=== PATIENT | female | born 1995 | race Caucasian/White ===

== ENCOUNTER → 2019-11-09 16:34 | Outpatient (CLI) | payer BC, SELFPAY ==
[2019-11-09 17:54] LABS: HCG,Quantitative 1800 mIU/ml (0-5.42)
[2019-11-11 09:15] LABS: Progesterone 18.8 ng/mL (.)
== END ==
PROVIDERS: Visit Provider Nurse Practitioner
DX: N91.1 Secondary amenorrhea (principal)
CPT/HCPCS: 36415; 84144; 84702

== ENCOUNTER → 2019-11-11 10:05 | Outpatient (CLI) | payer BC, SELFPAY ==
[2019-11-11 11:00] LABS: HCG,Quantitative 4106 mIU/ml (0-5.42)
== END ==
PROVIDERS: Visit Provider Nurse Practitioner
DX: N91.1 Secondary amenorrhea (principal)
CPT/HCPCS: 36415; 84702

== ENCOUNTER 2022-03-21 14:14 | Emergency (ER) | payer BC, SELFPAY ==
[2022-03-21 15:16] VITALS: BP 143/101; PULSE 79; RESP 16; TEMP 37; O2SAT 99; BMI 35.2
--- NOTE | 2022-03-21 15:52 | EXP.UTC ---
Discharge Plan Disposition Patient Disposition: Home, Self-Care Condition: Good Prescriptions Prescriptions: No Action gabapentin 100 mg capsule 100 mg PO HS methylprednisolone [Medrol (Darryl)] 4 mg tablets,dose pack See Rx Instructions PO PER PKG DIR Qty: 21 0RF Rx Instructions: PO PER PKG DIR Referrals Follow up/Referrals: Yue Mccord MD [Primary Care Provider] - See instructions Activity Restrictions/Add. Instructions Additional Instructions/Restrictions: You have been tested for COVID19. Please isolate yourself as if you are positive until test results received. Current CDC guidelines are quarantine X 5 days from onset of symptoms, with an additional 5 days of mask wearing at all times. If you have difficulty breathing, signs of dehydration, etc please seek treatment at ER. Clinical Impressions Clinical Impression: COVID-19 Stand Alone Forms Stand Alone Forms: Work/School Release Discharge ED Provider: Samantha Tyler [facility] HPI General Stated complaint: tested positive Mode of Arrival: Ambulatory Source of Information: Patient Limitations: No Limitations Time Seen by Provider: 03/21/22 15:45 Description of Symptoms (Recalled from Triage Doc. by RN): pt c/o for covid test for work. pt had at home positive test yesterday HEENT Symptoms (Recalled from RN notes): Yes Resp Symptoms (Recalled from RN notes): Yes Skin Symptoms (Recalled from RN notes): No MS Symptoms (Recalled from RN notes): No Functional Status (Recalled from RN notes): n/a History of Present Illness Provider Complaint: Patient has had sinus symptoms for 4-5 days. had fever, got tested at work and was positive for COVID19. She took a home test yesterday and it was positive. She is actually feeling much better today but work requires a PCR test. Onset (ago): day(s) Relieving factors: none Exacerbating factors: none Treatments prior to arrival: none Related Data Home Medications Medication Instructions Recorded Confirmed gabapentin 100 mg capsule 100 mg PO HS 10/07/20 10/07/20 Previous Rx's Medication Instructions Recorded methylprednisolone 4 mg tablets in See Rx Instructions PO PER PKG DIR 10/07/20 a dose pack (Medrol (Darryl)) #21 tabs Allergies Allergy/AdvReac Type Severity Reaction Status Date / Time No Known Allergies Allergy Verified 10/07/20 15:42 Worker's Comp Is this a Worker's Comp case?: No PFSH PFSH Social History Smoking Status: Never smoker alcohol intake: current substance use type: denies use current occupational status: employed household members: spouse and children housing: house ROS Obtained: Yes All systems reviewed & no additional complaints except as documented Constitutional Constitutional: Reports fatigue ENT Ears, Nose, Mouth, and Throat: Reports nasal congestion Respiratory Respiratory: Reports cough Endocrine Endocrine: Reports fatigue Physical Exam General General appearance: alert and in no apparent distress Head Head exam: atraumatic, normocephalic and normal inspection Eye Eye exam: Present normal appearance, PERRL and EOMI ENT ENT exam: Present normal exam, normal oropharynx, mucous membranes moist, TM's normal bilaterally and normal external ear exam Neck Neck exam: Present normal inspection, full ROM and trachea midline; Absent meningismus or lymphadenopathy Chest Chest inspection: Present normal inspection and symmetric chest wall rise; Absent tenderness Respiratory Respiratory exam: Present normal lung sounds bilaterally; Absent respiratory distress Cardiovascular Cardiovascular exam: Present regular rate and normal rhythm; Absent JVD Extremities Exam Extremities exam: Present normal inspection, full ROM and normal capillary refill; Absent calf tenderness Neurological Exam Neurological exam: Present alert and oriented X3 Psychiatric Psychiatric exam: Present normal affect and normal mood Skin Skin exam: Present warm, d
[2022-03-21 16:15] VITALS: BP 143/101; PULSE 79; RESP 16; TEMP 37
== END 2022-03-21 16:15 | disposition home or self-care (01) ==
PROVIDERS: Emergency Provider Physician Assistant; PCP Family Medicine
DX: U07.1 COVID-19 (principal)
CPT/HCPCS: 99212; C9803; G0463; U0003; U0005

== ENCOUNTER → 2022-12-22 16:56 | Outpatient (CLI) | payer BC, SELFPAY ==
[2022-12-24 08:21] LABS: Progesterone 0.1 ng/mL (.)
== END ==
PROVIDERS: Visit Provider Student in an Organized Health Care Education/Training Program
DX: N97.0 Female infertility associated with anovulation (principal)
CPT/HCPCS: 36415; 84144

== ENCOUNTER 2023-12-05 15:04 | Outpatient (CLI) | payer BC, SELFPAY ==
--- NOTE | 2023-12-05 15:10 | PC.NURSE ---
From [phone] Patient here for consult r/t unable to latch . Nia delivered at 37 6/7 on 11/07/2023 via repeat c/s. Failed . No complications with delivery or care. Patient reports she is pumping and feeding via bottle. Reports infant very fussy with feeding and therefore she has been using dr chinchilla bottle with pumped breast milk. Reports that she thinks she has a good milk supply I have 100 ounces of milk stored. No tongue, lip or cheek tie noted. has strong suck. This IBCLC assisted with latch, mom holding away from body arching back and crying. IBCLC went over proper holding of infant for feeding, introduced nipple shield (since was used to a bottle nipple for nearly a month). Infant latched well and nursed for 15-20 mins. INfant was around 1 ounce and was satisfied. Plan of care went over with patient and told patient that I would call her Wednesday. Nipple shield nipple shield instructions proper latch instructions all given to patient.
== END 2023-12-05 16:10 | disposition home or self-care (01) ==
LOC: OBOUT 15:07 → OB 15:10
PROVIDERS: Visit Provider Obstetrics & Gynecology
DX: Z39.1 Encounter for care and examination of lactating mother (principal)

== ENCOUNTER 2024-02-28 17:25 | Outpatient (CLI) | payer BC, SELFPAY ==
--- NOTE | 2024-02-28 18:00 | PC.NURSE ---
Nia is here for a consult- goal is to re-latch . Nia has been exclusively pumping and feeding through a bottle. Nia has an oversupply and is doing well with no pain. Reports that she started a few days ago latching infant. Reports infant has been coming on and off during feeds. LC observed feeding at this time. did appear fussy and tired at breast. Good latch noted during feeding. Infant consumed an appropriate amount of 2 ounces. Nai was given instructions on attempting to nurse before every bottle feeding. Making sure her and infant were relaxed and in a good position. Recommended gas drops before and frequent burping. LC will contact patient next Wednesday for a phone follow up.
== END 2024-02-28 18:10 | disposition home or self-care (01) ==
LOC: OBOUT 17:27 → OB 17:28
DX: Z39.1 Encounter for care and examination of lactating mother (principal)

== ENCOUNTER 2024-10-17 10:59 | Outpatient (CLI) | payer BC, SELFPAY ==
--- NOTE | 2024-10-17 11:03 | XR_ITS ---
FINAL REPORT CLINICAL HISTORY: Rt lateral foot pain for 1 week, nki COMPARISON: None FINDINGS: AP, oblique and lateral views of the right foot were obtained. There is no acute fracture or dislocation. The joint spaces are preserved. Soft tissues are unremarkable. IMPRESSION: No acute osseous abnormality of the right foot. Reviewed, Interpreted and Dictated by Teresa Liu MD Transcribed by Rubi Mcintyre Authenticated and [facility]
== END 2024-10-17 23:59 | disposition home or self-care (01) ==
LOC: RAD 11:00
PROVIDERS: PCP Nurse Practitioner Family; Visit Provider Nurse Practitioner Family
DX: M79.671 Pain in right foot (principal)
CPT/HCPCS: 73630

== ENCOUNTER 2025-03-31 11:46 | Outpatient (CLI) | payer BC, SELFPAY ==
--- OUTSIDE RECORDS SUMMARY | 2023-11-11 05:00 | XMS_ITS ---
Author Organization [facility] Address [address] [place] [address] Care Team Providers Care Supervisor Fur Dressing Name Role Phone Tania Laboy Unavailable [phone] Blanca Lara Unavailable [phone] REASON FOR VISIT NST Social History Sex Assigned At : Social History Observation Description Sex Assigned At Female Encounters Encounter Location Date Provider Diagnosis [facility] [address] [place] [address] 11/11/2023 Blanca Lara Plan Of Treatment Next Appt Details Follow Up: 2 - 3 Days, 2 - 3 Days, 2 - 3 Days, 2 - 3 Days, Reason: Progress Notes * Nia POMPA HDOB: [birth year] (30 yo F)Acc No.[id number]:11/11/2023 Progress Note Patient: Nia Silveira Provider: Pipe Lara CNM :1995 A ge:28 Y S ex:Female Date:11/11/2023 Address:[address], [place] Subjective: * Chief Complaints: * N ST Plan: * Follow Up: 2 - 3 Days, 2 - 3 Days, 2 - 3 Days, 2 - 3 Days * Electronic signature of Lis Lara CNM on 03/31/2025 at 11:52 AM EDT Sign off status: Pending Visit Status: C ALIX (Check Out) * Provider: Pipe Lara CNM Date: 0 11/11/2023 Generated for Alison Andersen/Alanna on: 0 03/31/2025 11:52 AM EDT
--- OUTSIDE RECORDS SUMMARY | 2023-11-14 13:00 | XMS_ITS ---
Author Organization [facility] Address [address] [place] [address] Care Team Providers Care Central Supply Clerk Name Role Phone Tania Laboy Unavailable [phone] Blanca Lara Unavailable [phone] REASON FOR VISIT IOL A2DM Social History Sex Assigned At : Social History Observation Description Sex Assigned At Female Encounters Encounter Location Date Provider Diagnosis [facility] [address] [place] [address] 11/14/2023 Blanca Lara Plan Of Treatment No Information Progress Notes * Nia POMPA HDOB: [birth year] (30 yo F)Acc No.[id number]:11/14/2023 Patient: Ankita jeffries Nia H Provider: Pipe Lara CNM :1995 A ge:28 Y S ex:Female Date:11/14/2023 Address:[facility] [address], [place] Subjective: * Chief Complaints: * I OL A2DM * Electronic signature of Lis Lara CNM on 03/31/2025 at 11:52 AM EDT Sign off status: Pending Visit Status: C ONFSMS (SMS) * Provider: Pipe Lara CNM Date: 0 11/14/2023 Generated for Printi ng/Fachiqui/eTransmitting on: 0 03/31/2025 11:52 AM EDT
--- OUTSIDE RECORDS SUMMARY | 2024-10-28 17:30 | XMS_ITS ---
Author Organization [facility] Address [address] [facility] [address] [place], [place] [address] Care Team Providers Care Painter Maintenance Name Role Phone Nimco Kimbrough Primary Care Provider NIMCO Kimbrough APRN Unavailable Unavailable Migration, Provider Unavailable Unavailable REASON FOR VISIT [facility] Conversion Encounter Medications Medication SIG (Take, Route, Frequency, Duration) Notes Start Date End Date Status Diclofenac Sodium 75 MG 1 tab(s) orally 2 times a day; Duration: 30 days 10/17/2024 Active Triamcinolone Acetonide 0.1 % 1 zohreh applied topically 2 times a day; Duration: 7 days 10/17/2024 Active Encounters Encounter Location Date Provider Diagnosis [facility] [address] [facility] [address] [place] [address] 10/28/2024 Provider Migration Plantar fasciitis of right foot M72.2 and Dermatitis L30.9 Assessments Encounter Date Diagnosis (ICD Code) Assessment Notes Treatment Notes Treatment Clinical Notes Section Notes 10/28/2024 Plantar fasciitis of right foot (ICD-10 - M72.2) 10/28/2024 Dermatitis (ICD-10 - L30.9) Plan Of Treatment Medication Medication Name Sig Start Date Stop Date Notes Diclofenac Sodium 75 MG 1 tab(s) orally 2 times a day; Duration: 30 days 10/17/2024 Triamcinolone Acetonide 0.1 % 1 zohreh appl ied topically 2 times a day; Duration: 7 days 10/17/2024 Next Appt Details Provider Name:Trina amos, 05/24/2025 02:00:00 PM, [address], [place], [address], Progress Notes * Tran POMPAAníbalOB: 4 (30 yo F)Acc No.[id number]:10/28/2024 Patient: Nia VICENTE Provider: Brandy fangder Migration :1995 A ge:29 Y S ex:Female Date:10/28/2024 Address:[address] [place], [place] Pcp:Nimco Kimbrough Subjective: * Chief Complaints: * 1 . Mult[facility] To Medispan Conversion Encounter. * Medical History: Objective: * Vitals: Assessment: * Assessment: 1. P lantar fasciitis of right foot - M72.2 2 . D ermatitis - L30.9 ? Plan: * Treatment: 2. D ermatitis Start Triamcinolone Acetonide Cream, 0.1 %, 1 zohreh, applied topically, 2 times a day, 7 days, 1, Refills 0. * * Electronic signature of Prov ider Migration on 03/31/2025 at 11:52 AM EDT Sign off status: Pending * Provider: Brandy gibson Migration Date: 10/28/2024 Generated for Alison williamson/Keely/Juan Carlossmitting on: 0 03/31/2025 11:52 AM EDT
--- OUTSIDE RECORDS SUMMARY | 2025-01-30 15:15 | XMS_ITS | Encounter Summary ---
Author Organization [facility] Address [address] [place] [address] Care Team Providers Care Route Salesperson Name Role Phone Nimco Siddiqui APRN Primary Care Provider [phone] Reason for Referral * Diagnostic Imaging (Routine) - Closed Specialty Diagnoses / Procedures Referred By Bri barajas Referred To Contact Radiology Diagnoses Family history of breast cancer in mother Procedures Mammo Screening Digital Tomosynthesis Bilateral With CAD Nimco Siddiqui APRN [address] [place] [address] Phone: tel: fax: [address] [address] Phone: tel: Referral ID Status Reason Start Date Expiration Date Visits Re quested Visits Authorized [id number] Closed 11/23/2024 02/22/2026 1 1 Reason for Visit * Diagnostic Imaging (Routine) - Closed Specialty Diagnoses / Procedures Referred By Bri barajas Referred To Contact Radiology Diagnoses Family history of breast cancer in mother Procedures Mammo Screening Digital Tomosynthesis Bilateral With CAD Nimco Siddiqui APRN [address] [place] [address] Phone: tel: fax: [address] [address] Phone: tel: Referral ID Status Reason Start Date Expiration Date Visits Re quested Visits Authorized [id number] Closed 11/23/2024 02/22/2026 1 1 Encounter Details Date Type Department Care Team (Latest Contact Info) Description 01/30/2025 3:15 PM EDT - 01/30/2025 11:59 PM EDT Hospital Encounter [facility] [address] [place] [address] Nimco Siddiqui, PUNCHER AND FASTENER [address] [facility] [address] [place] [address] Family history of breast cancer in mother Discharge Disposition: Home or Self Care Social History Tobacco Use Types Packs/Day Years Used Date Smoking Tobacco: Never Smokeless Tobacco: Never Alcohol Use Standard Drinks/Week Comments Not Currently 0 (1 standard drink = 0.6 oz pur e alcohol) [facility] Utilities Answer Date Recorded In the past 12 months has [employer], gas, oil, or water [employer] threatened to shut off services in your home? No 11/11/2023 AUDIT-C Answer Date Recorded Q1: How often do you have a drink containing alcohol? Never 11/11/2023 Q2: How many drinks containi ng alcohol do you have on a typical day when you are drinking? Patient does not drink Q3: How often do you have si x or more drinks on one occasion? Never 11/11/2023 Overall Financial Resource Strain (CARDIA) Answe r Date Recorded How hard is it for you to pa y for the very basics like food, housing, medical care, and heating? Not hard at all 11/11/2023 [facility] [employer] [facility] [employer] - Occupational Stress Questionnaire Answer Date Recorded Do you feel stress - tense, restless, nervous, or anxious, or unable to sleep at night because your mind is troubled all the time - these days? Only a little 11/11/2023 Exercise Vital Sign Answer Date Recorde d On average, how many days pe r week do you engage in moderate to strenuous exercise (like a brisk walk)? 3 days 11/11/2023 On average, how many minutes do you engage in exercise at this level? 60 min 11/11/2023 Hunger Vital Sign Answer Date Recorded Within the past 12 months, y ou worried that your food would run out before you got the money to buy more. Never true 11/11/19 24 Within the past 12 months, t he food you bought just didn't last and you didn't have money to get more. Never true 11/11/2023 PRAPARE - Transportation Answer Date Re corded In the past 12 months, has l ack of transportation kept you from medical appointments or from getting medications? No 10/24 In the past 12 months, has l ack of transportation kept you from meetings, work, or from getting things needed for daily living? No 11/11/2023 [place] Depression Scale Answer Date Recorded Retired [place] Depression Score 3 11/13/2023 Retired EPD Scale: Thought of Harming Self Unrec ognized value 11/13/2023 Abuse Screen Answer Date Recorded Feels Unsafe at Home or Work/School no 11/11/2023 Feels Threatened by Someone no 10/24 Does Anyone Try to Keep You From Having Contact with Others or Doing Things Outside Your Home? no 11/11/2023 Physical Signs of Abuse Present no 11/11/2023 Housing Stability Answer Date Recorded Current Living Arrangements home 10/24 Potentially Unsafe Housing Conditions none 11/11/2023 Family and Community Support Answer [place] e Recorded If for any reason you need h elp with day-to-day activities such as bathing, preparing meals, shopping, managing finances, etc., do you get the help you need? I don't need any help 11/11/2023 How often do you feel lonely or isolated from those around you? Never 11/11/2023 Employment Answer Date Recorded Do you want help finding or keeping work or a job? I do not need or want help 11/11/2023 Disabilities Answer Date Recorded Difficulty Concentrating, Remembering or Making Decisions no 11/11/2023 Difficulty Managing Errands Independently no 11/11/2023 Education Answer Date Recorded Do you want help with school or training? For example, starting or completing job training or getting a high school diploma, GED or equivalent No 11/11/2023 Preferred Language [place] 11/11/2023 PHQ-2 Answer Date Recorded Retired PHQ-9: Brief Depression Severity Measure Score 0 11/11/2023 Comments No Sex and Gender Information Value Date Recorded Sex Assigned at Not on file Legal Sex Female 11:09 AM EDT Gender Identity Not on file Sexual Orientation Not on file documented as of this encounter Medications at Time of Discharge docusate sodium 100 MG capsule Take 1 capsule by mouth 2 (Two) Times a Day As Needed for Constipation. 30 capsule 11/14/2023 10:08 AM EDT 11/14/2023 ibuprofen (ADVIL,MOTRIN) 600 MG tablet Take 1 tablet by mouth Every 6 (Six) Hours. 60 tablet 1 11/14/2023 10:08 AM EDT 11/14/2023 Insulin Pen Needle 32G X 4 MM misc For use with insulin injections, three times daily 100 each 11 08/31/2023 Vit-Fe Fumarate-FA ( 27-1) 27-1 MG tablet tablet Take 1 tablet by mouth Daily. documented as of this encounter Plan of Treatment Not on file documented as of this encounter Procedures Procedure Name Priority Date/Time Associated Diagnosis Comments MAMMO SCREENING DIGITAL TOMOSYNTHESIS BILATERAL W CAD Routine 01/30/2025 3:53 PM EDT Family history of breast cancer in mother documented in this encounter Results * Mammo Screening Digital Tomosynthesis Bilateral With CAD (01/30/2025 3:53 PM EDT) Anatomical Region Laterality Modality Breast N/A Mammography 01/31/2025 11:1 3 AM EDT Impressions 01/31/2025 11:14 AM EDT No findings suspicious for malignancy. ACR BI-RADS CATEGORY: 1, NEGATIVE RECOMMENDATION: Yearly mammogram, yearly clinical breast exam, and encourage self breast awareness. CAD was used. The standard false negative rate of mammography is between 10% and 25%. Complex patterns or increased breast density will markedly elevate the false negative rate of mammography. A letter, in lay terminology, with the results of this exam will be mailed to the patient. At our facility, a triangular marker is positioned over a palpable area of concern indicated by the patient. A [place] marker is placed over a visible skin lesion. A linear marker indicates a scar. If there is a palpable area of concern, biopsy should be considered regardless of imaging findings. 01/31/2025 11:[address] Mallory Puente MD on Narrative 01/31/2025 11:14 AM EDT DIGITAL SCREENING MAMMOGRAM WITH TOMOSYNTHESIS HISTORY: Routine screening. The patient has had an interval 12 pound weight loss. IMAGE COMPARISON: 12/31/2022. TECHNIQUE: Low dose full field digital breast tomosynthesis imaging was performed with 2D and 3D acquisitions consisting of bilateral CC and MLO views. FINDINGS: There are scattered areas of fibroglandular density. The fibroglandular pattern appears stable. There is no mass, worrisome microcalcifications, or architectural distortion to suggest development of malignancy. us Nimco Siddiqui APRN IMG MAMMOGRAPHY ORDERABLES Lisa l Result documented in this encounter Visit Diagnoses Diagnosis Family history of breast cancer in mother Family history of malignant neoplasm of breast documented in this encounter Care Teams Route Salesperson Relationship Specialty Start Date End Date Nimco Siddiqui APRN [address] [place] [address] PCP - General Nurse Practitioner 01/30/25 documented as of this encounter
--- OUTSIDE RECORDS SUMMARY | 2025-03-31 11:52 | XMS_ITS | Encounter Summary ---
Author Organization [facility] Address [address] [place] [address] Care Team Providers Care Ballet Teacher Name Role Phone Nimco Siddiqui APRN Primary Care Provider [phone] Encounter Details Date Type Department Care Team (Late st Contact Info) Description 03/06/2025 Documentation [facility] [address] [place] [phone] Hali Buckley Social History Tobacco Use Types Packs/Day Years Used Date Smoking Tobacco: Never Smokeless Tobacco: Never Alcohol Use Standard Drinks/Week Comments Not Currently 0 (1 standard drink = 0.6 oz pur e alcohol) [facility] Utilities Answer Date Recorded In the past 12 months has [employer] electric, gas, oil, or water company threatened to shut off services in your [...] and heating? Not hard at all 11/11/2023 [facility] [place] of Occupat ional Health - Occupational Stress [...] things needed for daily living? No 11/11/2023 [place] Depression Scale Answer Date Recorded Retired [place] Depression Score 3 11/13/2023 Retired EPD Scale: [...] GED or equivalent No 11/11/2023 Preferred Language Venezuelan 11/11/2023 PHQ-2 Answer Date Recorded Retired PHQ-9: Brief Depression Severity Measure Score 0 11/11/2023 Comments No Sex and Gender Information Value Date Recorded Sex Assigned at Not on file Legal Sex Female 11:09 AM EDT Gender Identity Not on file Sexual Orientation Not on file documented as of this encounter Progress Notes * Hali Buckley - 03/06/2025 9:35 AM EDT Meets NCCN Criteria for Genetic Testing Declines genetic testing? Y Reason for decline? Unable to Obtain Order If Reason for Decline is Previous Testing Amb CARE Non-CARE Non-CARE Confirmation Navigator Confirmed? Patient Reported? Elevated Tyrer-Cuzick Score ? Or Equal to 20% Declines referral? Reason for decline? documented in this encounter Plan of Treatment Not on file documented as of this encounter Visit Diagnoses Not on filedocumented in this encounter Care Teams Ballet Teacher Relationship Specialty Start Date End Date Nimco Siddiqui APRN [address] [place] [address] PCP - General Nurse Practitioner 01/30/25 documented as of this encounter
--- OUTSIDE RECORDS SUMMARY | 2025-03-31 11:52 | XMS_ITS | Clinical Summary ---
Author Organization [facility] Address [address] [place] [address] Care Team Providers Care Director Style Name Role Phone Nimco Siddiqui SAM Primary Care Provider [phone] Allergies No known active allergies Medications Vit-Fe Fumarate-FA ( 27) 27-1 MG tablet tablet Take 1 tablet by mouth Daily. Active Insulin Pen Needle 32G X 4 MM misc For use with insulin injections, three times daily 100 each 11 08/31/2023 Active docusate sodium 100 MG capsule Take 1 capsule by mouth 2 (Two) Times a Day As Needed for Constipation . 30 capsule 11/14/2023 10:08 AM EDT 11/14/2023 Active ibuprofen (ADVIL,MOTRIN) 600 MG tablet Take 1 tablet by mouth Every 6 (Six) Hours. 60 tablet 1 11/14/2023 10:08 AM EDT 11/14/2023 Active Active Problems Problem Noted Date Diagnosed Date S/P section 11/15/2023 Status post bilateral salpingectomy 11/15/2023 Elevated LFTs 11/11/2023 Gestational hypertension 11/11/2023 Nausea and vomiting 07/23/2023 Delivery by section of full-term 07/09/2020 Gestational diabetes mellitu s (GDM) in childbirth, insulin controlled 07/08/2020 Resolved Problems Problem Noted Date Diagnosed Date Resolved Date Encounter for induction of labor 07/08/2020 07/09/2020 Encounter for elective induction of labor 07/07/2020 07/08/2020 Encounters Date Type Department Care Team Description 03/06/2025 Documentation [facility] [address] [place] [address] Hali Bcukley 01/30/2025 3:15 PM EDT - 01/30/2025 11:59 PM EDT Hospital Encounter [facility] [address] [place] [address] Nimco Siddiqui APRN Family history of breast cancer in mother Discharge Disposition: Home or Self Care 01/30/2025 Travel 01/29/2025 Results Follow-Up [facility] [address] [place] [phone] Hali Buckley from Last 3 Months Immunizations Immunization Administration Dates Next Due MMR 07/11/2020 Family History Medical History Relation Name Comments Diabetes Father Breast cancer Mother Cancer Mother Diabetes Mother Heart disease Mother Stroke Mother Gestational diabetes Sister Ovarian cancer Neg Hx Relation Name Status Comments Father Alive Mother Alive Sister Alive Social History Tobacco Use Types Packs/Day Years Used Date Smoking Tobacco: Never Smokeless Tobacco: Never Tobacco Cessation:Counseling Given: Not Answered Alcohol Use Standard Drinks/Week Comments Not Currently 0 (1 standard drink = 0.6 oz pur e alcohol) [facility] Utilities Answer Date Recorded In the past 12 months has e electric, gas, oil, or water company threatened [...] and heating? Not hard at all 11/11/2023 [facility] of Occupat ional Health - Occupational Stress [...] things needed for daily living? No 11/11/2023 [place] Depression Scale Answer Date Recorded Retired [place] Depression Score 3 11/13/2023 Retired EPD Scale: [...] GED or equivalent No 11/11/2023 Preferred Language Bulgarian 11/11/2023 PHQ-2 Answer Date Recorded Retired PHQ-9: Brief Depression Severity Measure Score 0 11/11/2023 Comments No Sex and Gender Information Value Date Recorded Sex Assigned at Not on file Legal Sex Female 11:09 AM EDT Gender Identity Not on file Sexual Orientation Not on file Last Filed Vital Signs Vital Sign Reading Time Taken Comments Blood Pressure 108/53 11/15/2023 8:47 AM EDT Pulse 77 11/15/2023 8:47 AM EDT Temperature 36.8 C (98.2 F) 11/15/2023 8:47 AM EDT Respiratory Rate 18 11/15/2023 8:47 AM EDT Oxygen Saturation 94% 11/13/2023 7:00 AM EDT Inhaled Oxygen Concentration - - Weight 85.7 kg (189 lb) 11/11/2023 10:10 AM EDT Height 152.4 cm (5') 11/11/2023 10:10 AM EDT Body Mass Index 36.91 11/11/2023 10:10 AM EDT Plan of Treatment Health Maintenance Due Date Last Done Comments Annual Gynecologic Pelvic an d Breast Exam 1995 PAP SMEAR 2015 ANNUAL PHYSICAL 05/07/2020 COVID-19 Vaccine (3 - 2023-2 5 season) 2024 04/15/2021, 03/24/2021 INFLUENZA VACCINE 04/25/2025 03/26/2020, 04/20/2016 TDAP/TD VACCINES (3 - Td or Tdap) 11/16/2034 11/16/2024, 02/11/2005 HEPATITIS C SCREENING Completed 05/26/2023 , 11/24/2019 Pneumococcal Vaccine 0-49 Aged Out No longer eligible based on patient's age to complete this topic Procedures Procedure Name Priority Date/Time Associated Diagnosis Comments MAMMO SCREENING DIGITAL TOMOSYNTHESIS BILATERAL W CAD Routine 01/30/2025 3:53 PM EDT Family history of breast cancer in mother [facility] GENETIC ASSESSMENT Routine 01/29/2025 9:32 AM EDT HEPATITIS C ANTIBODY Routine 05/26/2023 11:51 AM EDT Encounter for supervision of normal first in first trimester 13 weeks gestation of from Last 3 Months or Most Recently Relevant to Health Maintenance Results * Mammo Screening Digital Tomosynthesis Bilateral [...] of concern indicated by the patient. A big sandy marker is placed over a visible skin [...] to suggest development of malignancy. us Nimco Artur BUTTONER IMG MAMMOGRAPHY ORDERABLES Lisa marion Result * (ABNORMAL) [facility] GENETIC RISK ASSESSMENT QUESTIONNAIRE - , (01/29/2025 9:32 AM EDT) Phyllis 18.4 [facility] NCCN NCCN met(A) [facility] Comment:High Risk Cancer Ris k Assessment 01/29/2025 9:32 AM EDT Nimcojr Siddiqui BUTTONER GENETIC TESTING Final Result [facility]
[address] [place] [address], [place] [phone] * Hepatitis C Antibody (05/26/2023 11:51 AM EDT) Pathologist [facility] Hepatitis C Ab Non-Reacti ve Non-Reacti ve 05/26/2023 3:40 PM EDT [facility] Blood Venipuncture / Unknown 05/26/2023 11:51 AM EDT 05/26/2023 11:51 AM EDT Narrative [facility] - 05/26/2023 3:40 PM EDT Results may be falsely decreased if patient taking Biotin. Tania Laboy MD LAB BLOOD ORDERABLES Final Re sult [facility]
[address] [place] [address], [place] [phone] from Last 3 Months or Most Recently Relevant to Health Maintenance Insurance [facility] PPO Advance Directives * CPR (Attempt to Resuscitate) (Latest Code Status on File) Date Activated Date Inactivated Comments 11/12/2023 9:14 PM 11/15/2023 2:36 PM Question Answer Comments Code Status (Patient has no pulse and is not breathing): CPR (Attempt to Resuscitate) Medical Interventions (Patie nt has pulse or is breathing): Full * CPR (Attempt to Resuscitate) Date Activated Date Inactivated Comments 11/12/2023 5:42 PM 11/12/2023 9:14 PM Question Answer Comments Code Status (Patient has no pulse and is not breathing): CPR (Attempt to Resuscitate) Medical Interventions (Patie nt has pulse or is breathing): Full Support Level Of Support Discussed With: Patient * CPR (Attempt to Resuscitate) Date Activated Date Inactivated Comments 11/11/2023 8:02 PM 11/12/2023 5:42 PM Question Answer Comments Code Status (Patient has no pulse and is not breathing): CPR (Attempt to Resuscitate) Medical Interventions (Patie nt has pulse or is breathing): Full Support Level Of Support Discussed With: Patient * CPR (Attempt to Resuscitate) Date Activated Date Inactivated Comments 11/11/2023 12:43 PM 11/11/2023 8:02 PM Question Answer Comments Code Status (Patient has no pulse and is not breathing): CPR (Attempt to Resuscitate) Medical Interventions (Patie nt has pulse or is breathing): Full Support Level Of Support Discussed With: Patient * CPR (Attempt to Resuscitate) Date Activated Date Inactivated Comments 07/09/2020 8:03 AM 07/11/2020 9:11 PM Question Answer Comments Code Status (Patient has no pulse and is not breathing): CPR (Attempt to Resuscitate) Medical Interventions (Patie nt has pulse or is breathing): Full Care Teams Director Style Relationship Specialty Start Date End Date Nimco Siddiqui APRN [address] [place] [address] PCP - General Nurse Practitioner 01/30/25
--- OUTSIDE RECORDS SUMMARY | 2025-03-31 11:52 | XMS_ITS | Encounter Summary ---
Author Organization [facility] Address [address] [place] [address] Care Team Providers Care Behavioral Consultant Name Role Phone Nimco Siddiqui APRN Primary Care Provider [phone] Encounter Details Date Type Department Care Team (Late st Contact Info) Description 01/29/2025 Results Follow-Up [facility] CANCER RISK ASSESSMENT [address] [place] [address] Hali Buckley Social History Tobacco Use Types Packs/Day Years Used Date Smoking Tobacco: Never Smokeless Tobacco: Never Alcohol Use Standard Drinks/Week Comments Not Currently 0 (1 standard drink = 0.6 oz pur e alcohol) [facility] Utilities Answer Date Recorded In the past 12 months has [employer] electric, gas, oil, or water company threatened [...] and heating? Not hard at all 11/11/2023 [facility] [place] of Occupat ional Health - Occupational Stress [...] things needed for daily living? No 11/11/2023 [place] Depression Scale Answer Date Recorded Retired [place] Depression Score 3 11/13/2023 Retired EPD Scale: [...] GED or equivalent No 11/11/2023 Preferred Language French 11/11/2023 PHQ-2 Answer Date Recorded Retired PHQ-9: Brief Depression Severity Measure Score 0 11/11/2023 Comments No Sex and Gender Information Value Date Recorded Sex Assigned at Not on file Legal Sex Female 11:09 AM EDT Gender Identity Not on file Sexual Orientation Not on file documented as of this encounter Progress Notes * Hali Buckley - 03/06/2025 9:26 AM EDT Sent the patient a [employer] message re: unable to obtain genetic testing order. * Hali Buckley - 01/30/2025 4:19 PM EDT This patient recently completed the CARE risk assessment for a mammogram appointment. Based on the patient's responses, NCCN criteria for genetic testing was met. At the time of the assessment, the patient was provided with both written and video educational materials regarding genetic testing. Navigator follow-up: I discussed the option of hereditary cancer genetic testing with the patient including outlining the next steps to proceed with testing, the insurance process, and potential testing outcomes. The patient would like to proceed with genetic testing. I will submit an order for approval to the providerand coordinate care. * Hali Buckley - 01/29/2025 4:36 PM EDT I sent the patient a [employer] message asking for a call to discuss assessment results. documented in this encounter Plan of Treatment Not on file documented as of this encounter Visit Diagnoses Not on filedocumented in this encounter Care Teams Behavioral Consultant Relationship Specialty Start Date End Date Nimco Siddiqui APRN [facility] [place] [address] PCP - General Nurse Practitioner 01/30/25 documented as of this encounter
--- OUTSIDE RECORDS SUMMARY | 2025-03-31 11:52 | XMS_ITS | Encounter Summary ---
Author Organization [facility] Address [address] [place] [address] Care Team Providers Care Mechanical Engineering Coop Name Role Phone Nimco Siddiqui APRN Primary Care Provider [phone] Encounter Details Date Type Department Care Team (Latest Contact Info) Description 01/30/2025 Travel Social History Tobacco Use Types Packs/Day Years Used Date Smoking Tobacco: Never Smokeless Tobacco: Never Alcohol Use Standard Drinks/Week Comments Not Currently 0 (1 standard drink = 0.6 oz pur e alcohol) [facility] Utilities Answer Date Recorded In the past 12 months has [employer] electric, gas, oil, or water company threatened [...] and heating? Not hard at all 11/11/2023 [facility] of Occupat ional Health - Occupational Stress [...] things needed for daily living? No 11/11/2023 [place] Depression Scale Answer Date Recorded Retired [place] Depression Score 3 11/13/2023 Retired EPD Scale: [...] GED or equivalent No 11/11/2023 Preferred Language Stateless 11/11/2023 PHQ-2 Answer Date Recorded Retired PHQ-9: Brief Depression Severity Measure Score 0 11/11/2023 Comments No Sex and Gender Information Value Date Recorded Sex Assigned at Not on file Legal Sex Female 11:09 AM EDT Gender Identity Not on file Sexual Orientation Not on file documented as of this encounter Plan of Treatment Not on file documented as of this encounter Visit Diagnoses Not on filedocumented in this encounter Care Teams Mechanical Engineering Coop Relationship Specialty Start Date End Date Nimco Siddiqui APRN [facility] [place] [address] PCP - General Nurse Practitioner 01/30/25 documented as of this encounter
--- OUTSIDE RECORDS SUMMARY | 2025-03-31 11:53 | XMS_ITS | Patient Health Record ---
Author Organization [facility] Address [address] [place] [address] Care Team Providers Care Automobile Radio Repairer Name Role Phone Tania Laboy Unavailable [phone] Allergies No Known Allergies Reason For Referral No Information Medications Medication SIG (Take, Route, Frequency, Duration) Notes Start Date End Date Status (w/Iron & FA) 27-0.8 MG Tablet 1 tablet Orally Once a day Active Social History Tobacco Use: Social History Observation Description Date Details (start date - stop date) Never Smoker NA - NA Sex Assigned At : Social History Observation Description Sex Assigned At Female Social History Drugs/Alcohol: Social Info Question Answer Notes Drugs Have you used drugs other than those for medical reasons in the past 12 months? No Alcohol Screen Did you have a drink containing alcohol in the past year? No Points 0 Interpretation Negative Tobacco Use: Social Info Question Answer Notes Tobacco Use/Smoking Are you a nonsmoker Problems Problem Type SNOMED Code ICD Code Onset Dates Problem Status W/U Status Risk Notes Problem RhD negative (finding) (816915818) Blood type, Rh negative (Z67.91) Active confirmed Problem Maternal obesity complicating , childbirth and the puerperium, antepartum (555923284088) Obesity in (O99.210) Active confirmed Problem Anxiety disorder (166770096) Anxiety disorder, unspecified (F41.9) Active confirmed Problem Supervision of high risk (863744043) Supervision of other high risk pregnancies, third trimester (O09.893) Active confirmed Problem Insulin controlled gestational diabetes mellitus (GDM) in third trimester (O24.414) Active confirmed Problem History of section (877002959) History of delivery (Z98.891) Active confirmed Problem Desires (vaginal after ) trial (O34.219) Active confirmed Plan Of Treatment No Information Insurance Providers Payer Name Payer Address Payer Phone Subscriber Number Group Number Insured Name Patient Relationship to Insured Coverage Start Date Coverage End Date [place] PPO [address] [place] [address] [id number] Nia Berman Self - patient is the insured 2 Medications Administered Medication Instructions Date of Administration Dosage Notes Rho D Immune Globulin 09/06/2023 300 ug Medical (General) History Medical History History ICD Code anxiety PCOS Surgical History Surgery Date(Month/Year) none noted Hospitalization History Reason Date(Month/Year) 11/12/2023 L&D
--- OUTSIDE RECORDS SUMMARY | 2025-03-31 11:53 | XMS_ITS | Patient Health Record ---
Author Organization [facility] Address [address] [facility] [address] [place] [address] Care Team Providers Care Fisher Hand Line Name Role Phone Nimco Kimbrough Primary Care Provider NIMCO Kimbrough APRN Unavailable Unavailable Kailey Trina Unavailable [phone] Trina Rowland Unavailable [phone] Migration, Provider Unavailable Unavailable Allergies No Known Allergies Results Component Value Reference Range Notes X ray : Foot, Right Reviewed date:10/18/2024 01:17:44 PM Interpretation: Performing Lab: Notes/Report: LIPID PANEL, STANDARD (7600) Reviewed date:11/17/2024 04:15:21 PM Interpretation: Performing Lab:[facility], [facility] [address] [facility] HospitalVnfpMQ[address] Kehinde Reynoso Notes/Report: NON-FASTING; NON-FASTING; NON-FASTING; NON-FASTING; NON-FAST FASTING:YES FASTING: YES CHOLESTEROL, TOTAL 210 <200 mg/dL HDL CHOLESTEROL 43 > OR = 50 mg/dL TRIGLYCERIDES 158 <150 mg/dL LDL-CHOLESTEROL 138 <70 mg/dL for patients with CHD or diabetic patients with > or = 2 CHD risk factors. LDL-C is now calculated using the Francine calculation, which is a validated novel method providing better accuracy than the Friedewald equation in the estimation of LDL-C. Mack METZGER et al. STU. 2013;310(19): 7528-3988 (http://education.Vineloop.com/faq/CEY654) Reference range: <100 Desirable range <100 mg/dL for primary prevention; CHOL/HDLC RATIO 4.9 <5.0 (calc) NON HDL CHOLESTEROL 167 <130 mg/dL (calc) For patients with diabetes plus 1 major ASCVD risk factor, treating to a non-HDL-C goal of <100 mg/dL (LDL-C of <70 mg/dL) is considered a therapeutic option. COMPREHENSIVE METABOLIC PANE L (52355) Reviewed date:11/17/2024 04:15:21 PM Interpretation: Performing Lab:[facility], [address], [place] YxopDO[address] Kehinde Reynoso Notes/Report: NON-FASTING; NON-FASTING; NON-FASTING; NON-FASTING; NON-FAST FASTING:YES FASTING: YES GLUCOSE 94 65-99 mg/dL Fasting reference interval UREA NITROGEN (BUN) 12 7-25 mg/dL CREATININE 0.60 0.50-0.97 mg/dL EGFR 124 > OR = 60 mL/min/1.73m2 BUN/CREATININE RATIO SEE NOTE: 6-22 (calc) Not Reported: BUN and Creatinine are within reference range. SODIUM 139 135-146 mmol/L POTASSIUM 4.2 3.5-5.3 mmol/L CHLORIDE 106 98-110 mmol/L CARBON DIOXIDE 23 20-32 mmol/L CALCIUM 9.2 8.6-10.2 mg/dL PROTEIN, TOTAL 7.1 6.1-8.1 g/dL ALBUMIN 4.4 3.6-5.1 g/dL GLOBULIN 2.7 1.9-3.7 g/dL (calc) ALBUMIN/GLOBULIN RATIO 1.6 1.0-2.5 (calc) BILIRUBIN, TOTAL 0.4 0.2-1.2 mg/dL ALKALINE PHOSPHATASE 77 31-125 U/L AST 20 10-30 U/L ALT 26 6-29 U/L CBC (INCLUDES DIFF/PLT) (639 9) Reviewed date:11/17/2024 04:15:21 PM Interpretation: Performing Lab:[facility], [facility] [address] [employer], MitomicsVyyeNH[address] Kehinde Reynoso Notes/Report: NON-FASTING; NON-FASTING; NON-FASTING; NON-FASTING; NON-FAST FASTING:YES FASTING: YES WHITE BLOOD CELL COUNT 6.1 3.8-10.8 Thousand/ uL RED BLOOD CELL COUNT 5.02 3.80-5.10 Million/uL HEMOGLOBIN 15.2 11.7-15.5 g/dL HEMATOCRIT 46.0 35.0-45.0 % MCV 91.6 80.0-100.0 fL MCH 30.3 27.0-33.0 pg MCHC 33.0 32.0-36.0 g/dL For adults, a slight decrease in the calculated MCHC value (in the range of 30 to 32 g/dL) is most likely not clinically significant; however, it should be interpreted with caution in correlation with other red cell parameters and the patient's clinical condition. RDW 12.9 11.0-15.0 % PLATELET COUNT 258 140-400 Thousand/uL MPV 9.5 7.5-12.5 fL ABSOLUTE NEUTROPHILS 2959 2351-1719 cells/uL ABSOLUTE LYMPHOCYTES 2550 850-3900 cells/uL ABSOLUTE MONOCYTES 390 200-950 cells/uL ABSOLUTE EOSINOPHILS 159 15-500 cells/uL ABSOLUTE BASOPHILS 43 0-200 cells/uL NEUTROPHILS 48.5 LYMPHOCYTES 41.8 MONOCYTES 6.4 EOSINOPHILS 2.6 BASOPHILS 0.7 HEMOGLOBIN A1c (496) Reviewed date:11/17/2024 04:15:22 PM Interpretation: Performing Lab:[facility]AND [facility] [employer] e[employer] MedicalIwifRE[address] Kehinde Reynoso Notes/Report: NON-FASTING; NON-FASTING; NON-FASTING; NON-FASTING; NON-FAST FASTING:YES FASTING: YES HEMOGLOBIN A1c 5.8 <5.7 % For someone without known diabetes, a hemoglobin A1c value between 5.7% and 6.4% is consistent with prediabetes and should be confirmed with a follow-up test. For someone with known diabetes, a value <7% indicates that their diabetes is well controlled. A1c targets should be individualized based on duration of diabetes, age, comorbid conditions, and other considerations. This assay result is consistent with an increased risk of diabetes. Currently, no consensus exists regarding use of hemoglobin A1c for diagnosis of diabetes for children. TSH (269) Reviewed date:11/17/2024 04:15:22 PM Interpretation: Performing Lab:[facility] [employer] [employer], e[employer] MedicalDriiSW[address] Kehinde Reynoso Notes/Report: NON-FASTING; NON-FASTING; NON-FASTING; NON-FASTING; NON-FAST FASTING:YES FASTING: YES TSH 2.50 Reference Range > or = 20 Years 0.40-4.50 Ranges First trimester 0.26-2.66 Second trimester 0.55-2.73 Third trimester 0.43-2.91 Reason For Referral Reason [facility] Diagnosis 1 Family history of br east cancer in mother (Z80.3) Referral Organization [facility] KEI ENGLE Referring Provider First Name Nimco Referring Provider Last Name Kaylan Referring Provider Speciality Family Pra ctice Referred Organization [facility] sician Referrals Referred Address [address] [place], [place],[address], General Notes Selena Bauman 2024 12:00:59 PM >[facility] to [facility] Referral Priority Routine Medications Medication SIG (Take, Route, Fr equency, Duration) Notes Start Date End Date Status Daily Vitamins - 1 tablet Orally Once a day Active Immunizations Vaccine Route Administration Date Status Comme nts Boostrix IM Intramuscular 11/16/2024 Administered Social History Tobacco Use: Social History Observation Description Date Details (start date - stop date) Never Smoker NA - NA Tobacco Control (Standard) Question Answer Notes Tobacco use: Nonsmoker Problems Problem Type SNOMED Code ICD Code Onset Dates Problem Status W/U Status Risk Notes Problem Carpal tunnel syndrome (20847392) Right carpal tunnel syndrome (G56.01) Active confirmed Problem Obese class II (625870440758445 ) BMI 36.0-36.9,adult (Z68.36) Active confirmed Problem Plantar fasciitis of right foot (307908234787605 01) Plantar fasciitis of right foot (M72.2) Active confirmed Problem History of gestational diabetes mellitus (214691472) History of gestational diabetes (Z86.32) Active confirmed Vital Signs Heart Rate 78 /min 03/31/2025 Temperature 97.8 degrees Fahrenheit 03/31/2025 Blood pressure diastolic 68 mm Hg 03/31/2025 Height 60.5 in 03/31/2025 Blood pressure systolic 106 mm Hg 03/31/2025 Weight 159.2 lbs 03/31/2025 BMI 30.58 kg/m2 03/31/2025 Encounters Encounter Location Date Provider Diagnosis [facility] [address] [facility] [address] [place] [address] 10/28/2024 Provider Migration Plantar fasciitis of right foot M72.2 and Dermatitis L30.9 [facility] [address] [facility] [place] [address] 03/31/2025 Trina Bonner Left hip pain M25.55 2 ; Clicking of left hip R29.4 and Mass of chest wall, left R22.2 [facility] [address] [place] [address] 10/17/2024 Nimco Kimbrough Right foot pain M79.671 ; Plantar fasciitis of right foot M72.2 and Dermatitis L30.9 [facility] [address] [place] [address] 11/16/2024 Nimco Kimbrough Routine medical exam Z00.00 ; BMI 36.0-36.9,adult Z68.36 ; Dermatitis L30.9 ; Plantar fasciitis of right foot M72.2 ; History of gestational diabetes Z86.32 ; Fatigue, unspecified type R53.83 ; Encounter for immunization Z23 ; Family history of breast cancer in mother Z80.3 and Right carpal tunnel syndrome G56.01 [facility] [address] [place] [address] 12/13/2024 Trina Rowland Acute pain of right knee M25.561 [facility] [address] [place] [address] 10/17/[address] [facility] [address] [place] [address] 11/23/2024 Nimco Kimbrough Assessments Encounter Date Diagnosis (ICD Code) Assessment Notes Treatment Notes Treatment Clinical Notes Section Notes 10/17/2024 Right foot pain (ICD-10 - M79.671) Discussed the etiology and expected course of plantar fascitis. Discussed the importance of good shoes and good arch supports. Recommended Powersteps in particular and discussed where they could be purchased. Discussed the importance of plantar stretches in the AM prior to standing and discussed various techniques. Discussed the role of prescription strength anti-inflammatorie s. Will obtain xray given h/o spontaneous fracture of left foot 10/17/2024 Plantar fasciitis of right foot (ICD-10 - M72.2) 10/28/2024 Plantar fasciitis of right foot (ICD-10 - M72.2) 11/16/2024 Routine medical exam (ICD-10 - Z00.00) Routine PVM UTD Tdap updated today Fasting labs drawn 11/16/2024 BMI 36.0-36.9,adult (ICD-10 - Z68.36) Recommend diet and weight loss 12/13/2024 Acute pain of right knee (ICD-10 - M25.561) Start NSAID TID, rest, ice, niya wrap. Seems to have some patellar tendonitis. No crepitus on exam or red flag symptoms. If no improvement in a week or suddenly unable to bear weight then patient should call office for x-ray and PT referral to be placed. Patient voices understanding and agrees with the plan of care above. 03/31/2025 Left hip pain (ICD-10 - M25.552) 03/31/2025 Clicking of left hip (ICD-10 - R29.4) 11/16/2024 Dermatitis (ICD-10 - L30.9) Signficant improvement with triamcinolone cream 03/31/2025 Mass of chest wall, left (ICD-10 - R22.2) 10/28/2024 Dermatitis (ICD-10 - L30.9) 10/17/2024 Dermatitis (ICD-10 - L30.9) Appears to be eczema. Discussed hypoallergenic precautions with use of dye-free & fragrance-free products (i.e. lotions, shampoos, detergents). Keep skin moisturized with suggested petroleum-based products. Okay to use steroid cream on neck and face x 2 days then aquaphor 11/16/2024 Plantar fasciitis of right foot (ICD-10 - M72.2) Improved with rest, ice, stretches, NSAIDS. Declines podiatry referral 11/16/2024 History of gestational diabetes (ICD-10 - Z86.32) A1c added to labs 11/16/2024 Fatigue, unspecified type (ICD-10 - R53.83) Likely benign, labs drawn to r/o thyroid disease, anemia, diabetes, etc 11/16/2024 Encounter for immunization (ICD-10 - Z23) 11/16/2024 Family history of breast cancer in mother (ICD-10 - Z80.3) Refer to [facility] to follow with repeat mammogram 11/16/2024 Right carpal tunnel syndrome (ICD-10 - G56.01) Discussed the etiology and expected course of carpal tunnel syndrome. Discussed the use of anti-inflammatorie s/NSAIDS to promote healing and discussed the risks/side-effects of such. Discussed the use or wrist bracing and the importance of wearing them not only with aggravating activity but also at night. Plan Of Treatment Pending Test Test Name Order Date X ray : Hip, Left 03/31/2025 Mammogram : Bilateral 11/16/2024 Next Appt Details Provider Name:Trina Garcíacira ce, 05/24/2025 02:00:00 PM, [address] [facility] [address] [facility], [address], [place], [address], Insurance Providers Payer Name Payer Address Payer Phone Subscriber Number Group Number Insured Name Patient Relationship to Insured Coverage Start Date Coverage End Date [facility] [employer] [address] [place] [address] [id number] Nia Berman Self - patient is the insured Medical (General) History Medical History History ICD Code PCOS Surgical History Surgery Date(Month/Year) x 2 2023 Hospitalization History Reason Date(Month/Year) Childbirth 2023
--- NOTE | 2025-03-31 12:04 | XR_ITS ---
PROCEDURE INFORMATION: Exam: XR Left Hip Exam date and time: 03/31/2025 11:54 AM Age: 30 years old Clinical indication: Pelvic pain TECHNIQUE: Imaging protocol: Radiologic exam of the left hip. Views: 2 or 3 views hip with pelvis when performed. COMPARISON: No relevant prior studies available. FINDINGS: Bones/joints: AP pelvis demonstrates potential minimal sclerosis along the iliac margin of the right SI joint. This may correspond to overlapping densities. Findings could correspond to changes of osteitis iliac. No bony erosion or destruction. No ankylosis of the right and left SI joint. Mild degenerative facet changes are present within the lower lumbar spine. Sacral ala are intact. Minimal sclerosis of the symphysis pubis. No bony erosion or destruction. Symmetric appearance of the right and left hip joint. Joint spaces are well preserved. Right and left femoral neck appears somewhat heterogeneous which is nonspecific. No significant arthritic change. No fracture. No suspicious bone lesion. Superior and inferior pubic rami are intact. Soft tissues: Overlying soft tissues appear unremarkable. Intraperitoneal space: Moderate amount of stool scattered within the visualized portion of the colon and rectum. Nonobstructive bowel gas pattern. IMPRESSION: 1. Mild sclerosis at the symphysis pubis. No bony erosion or destruction. Sclerotic appearance is slightly more prominent on the right compared to the left. Findings can be seen in the setting of osteitis pubis. Please correlate with any focal pain over the symphysis pubis. 2. There is question of minimal sclerosis along the ilial margin of the right SI joint which can be seen in the setting of osteitis condensans ilii. 3. No ankylosis of the right and left SI joint. 4. Symmetric appearance of the right and left hip joint. No fracture or suspicious bone lesion. No significant arthritic change.
== END 2025-03-31 23:59 | disposition home or self-care (01) ==
LOC: RAD 11:50
PROVIDERS: PCP Nurse Practitioner Family; Visit Provider Nurse Practitioner Family
DX: M85.88 Other specified disorders of bone density and structure, other site (principal); R93.7 Abnormal findings on diagnostic imaging of other parts of musculoskeletal system; M25.552 Pain in left hip; R29.4 Clicking hip
CPT/HCPCS: 73502

== ENCOUNTER 2025-04-06 14:15 | Outpatient (CLI) | payer BC, SELFPAY ==
--- OUTSIDE RECORDS SUMMARY | 2023-11-11 05:00 | XMS_ITS ---
Author Organization [facility] Address [address] [place] [address] Care Team Providers Care Coding Advisor Name Role Phone Tania Laboy Unavailable [phone] Blanca Lara Unavailable [phone] REASON FOR VISIT NST Social History Sex Assigned At : Social History Observation Description Sex Assigned At Female Encounters Encounter Location Date Provider Diagnosis [facility] [address] [place] [address] 11/11/2023 Blanca Lara Plan Of Treatment Next Appt Details Follow Up: 2 - 3 Days, 2 - 3 Days, 2 - 3 Days, 2 - 3 Days, Reason: Progress Notes * Nia POMPA HDOB: [birth year] (30 yo F)Acc No.[id number]:11/11/2023 Progress Note Patient: Nia Silveira Provider: Pipe Lara CNM :1995 A ge:28 Y S ex:Female Date:11/11/2023 Address:[address], [place] Subjective: * Chief Complaints: * N ST Plan: * Follow Up: 2 - 3 Days, 2 - 3 Days, 2 - 3 Days, 2 - 3 Days * Electronic signature of Lis Lara CNM on 04/06/2025 at 02:18 PM EDT Sign off status: Pending Visit Status: C ALIX (Check Out) * Provider: Pipe Lara CNM Date: 0 11/11/2023 Generated for Alison Andersen/Alanna on: 0 04/06/2025 02:18 PM EDT
--- OUTSIDE RECORDS SUMMARY | 2023-11-14 13:00 | XMS_ITS ---
Author Organization [facility] Address [address] [place] [address] Care Team Providers Care Fire Protection Equipment Technician Name Role Phone Tania Laboy Unavailable [phone] Blanca Lara Unavailable [phone] REASON FOR VISIT IOL A2DM Social History Sex Assigned At : Social History Observation Description Sex Assigned At Female Encounters Encounter Location Date Provider Diagnosis [facility] [address] [place] [address] 11/14/2023 Blanca Lara Plan Of Treatment No Information Progress Notes * Nia POMPA HDOB: [birth year] (30 yo F)Acc No.[id number]:11/14/2023 Patient: Ankita jeffries Nia H Provider: Pipe Lara CNM :1995 A ge:28 Y S ex:Female Date:11/14/2023 Address:[facility] [address], [place] Subjective: * Chief Complaints: * I OL A2DM * Electronic signature of Lis Lara CNM on 04/06/2025 at 02:19 PM EDT Sign off status: Pending Visit Status: C ONFSMS (SMS) * Provider: Pipe Lara CNM Date: 0 11/14/2023 Generated for Printi ng/Fajamirg/eTransmitting on: 0 04/06/2025 02:19 PM EDT
--- OUTSIDE RECORDS SUMMARY | 2024-10-28 17:30 | XMS_ITS ---
Author Organization [facility] Address [address] [facility] [address] [place], [place] [address] Care Team Providers Care Advertising Inserter Name Role Phone Nimco Kimbrough Primary Care Provider NIMCO Kimbrough APRN Unavailable Unavailable Migration, Provider Unavailable Unavailable [facility] Conversion Encounter Medications Medication SIG (Take, Route, Frequency, Duration) Notes Start Date End Date Status Diclofenac Sodium 75 MG 1 tab(s) orally 2 times a day; Duration: 30 days 10/17/2024 Active Triamcinolone Acetonide 0.1 % 1 zohreh applied topically 2 times a day; Duration: 7 days 10/17/2024 Active Encounters Encounter Location Date Provider Diagnosis [facility] [address] [facility] [address] [place] [address] 10/28/2024 Provider Migration Plantar fasciitis of right [address], [place], [address], Progress Notes * Tran POMPAAníbalOB: 4 (30 yo F)Acc No.[id number]:10/28/2024 Patient: Nia VICENTE Provider: Brandy oneillvider Migration :1995 A ge:29 Y S ex:Female Date:10/28/2024 Address:[address], [place], [place] Pcp:Nimco Kimbrough Subjective: * Chief Complaints: * [...] Electronic signature of Prov ider Migration on 04/06/2025 at 02:19 PM EDT Sign off status: Pending * Provider: Brandy fangder Migration Date: 10/28/2024 Generated for Alison williamson/Keely/Juan Carlossmitting on: 0 04/06/2025 02:19 PM EDT
--- OUTSIDE RECORDS SUMMARY | 2025-03-31 07:00 | XMS_ITS ---
Author Organization [facility] D [facility] Address [address] [facility] [address] [place] [address] Care Team Providers Care Telephone Plant Power Operator Name Role Phone Nimco Kimbrough Primary Care Provider [phone] NIMCO Kimbrough APRN Unavailable Unavailable Trina Bonner Unavailable [phone] Allergies No Known Allergies Reason For Referral Reason US left breast and s oft tissue left chest Diagnosis 1 Mass of chest wall, left (R22.2) Referral Organization [facility]IEL Referring Provider First Name Trina Referring Provider Last Name Kailey Referring Provider Speciality Family Pra ctice Referred Organization [facility] Referred Address [address] [facility], [place],[address] Referred Provider Specialty Diagnostic R adiology General Notes Selena Bauman 2024 11:16:39 AM >all orders sent to [facility] to schedule Referral Priority Routine REASON FOR VISIT lt hip pain x 3-4 weeks ago, has gotten worse Medications Medication SIG (Take, Route, Fr equency, Duration) Notes Start Date End Date Status Daily Vitamins - 1 tablet Orally Once a day Active Social History Tobacco Use: Social History Observation Description Date Details (start date - stop date) Never Smoker NA - NA Tobacco Control (Standard) Question Answer Notes Tobacco use: Nonsmoker Vital Signs Temperature 97.8 degrees Fahrenheit 03/31/20 25 Heart Rate 78 /min 03/31/2025 Blood pressure systolic 106 mm Hg 03/31/20 25 Blood pressure diastolic 68 mm Hg 025 Height 60.5 in 03/31/2025 Weight 159.2 lbs 03/31/2025 BMI 30.58 kg/m2 03/31/2025 Encounters Encounter Location Date Provider Diagnosis [facility] [address] [place] [address] 03/31/2025 Trina Bonner Left hip pain M25.552 ; Clicking of left hip R29.4 and Mass of chest wall, left R22.2 Assessments Encounter Date Diagnosis (ICD Code) Assessment Notes Treatment Notes Treatment Clinical Notes Section Notes 03/31/2025 Left hip pain (ICD-10 - M25.552) labral injury? rec plain films as noted and consider PT vs additional imaging 03/31/2025 Clicking of left hip (ICD-10 - R29.4) 03/31/2025 Mass of chest wall, left (ICD-10 - R22.2) + FH breast cancer. Normal mamm in 01/2025, [facility]. Rec US this region. Plan Of Treatment Pending Test Test Name Order Date Ultrasound : Breast, Left 03/31/2025 X ray : Hip, Left 03/31/2025 Ultrasound : Soft Tissue 03/31/2025 Referrals Referral Date Details 03/31/2025 03/31/2025, US left breast and soft tissue left chest, [address] [facility], [place], [address], Next Appt Details Follow Up: prn, Reason: Provider Name:Trina Blue ce, 05/24/2025 02:00:00 PM, [address] [facility], [address], [place], [address], Progress Notes * Alyssa POMPAOB: 4 (30 yo F)Acc No.[id number]:03/31/2025 Progress Notes Patient: Nia VICENTE Provider: AUREA Robertson :1995 A ge:30 Y S ex:Female Date:03/31/2025 Address:[facility] [address], [place], [id number] Pcp:Nimco Siddiqui McNees Subjective: * Chief Complaints: * 1 . Lt hip pain x 3-4 weeks ago, has gotten worse. * HPI: g en: 30-year-old female presents today with a couple of concerns. 1. Left hip pain. Lateral, superior aspect. Mild pain at rest but worse with prolonged activity. She denies any known trauma. She has had a click in this hip for many years, seems to have gotten more often recently. No symptoms in the right hip. No radicular pain, paresthesias. 2. Lump just above the left breast. Mammogram has been done and is up-to-date within the past few months but just noticed this spot recently. * ROS: C ONSTITUTIONAL: Reviewed, No Symptoms Reported: Y es. N EUROLOGY: Reviewed, No Symptoms Reported: Y es. * Medical History: P COS. * Social History: R ecreational drug use: no. Exercise: no. Home smoke detector use: yes. Caffeine: yes, frequency: Diet Mt Dew, tea. Living Will: No. Alcohol: no. Sexually active: yes. Travel outside [place]: no. Occupation: Land Appraiser. Tobacco Control (Standard) T obacco use: N onsmoker. * Medications: T aking Daily Vitamins - Tablet 1 tablet Orally Once a day , Medication List reviewed and reconciled with the patient * Allergies: N .K.D.A. Objective: * Vitals: N urse: jl, Pain: 3, Temp: 97.8, RR: 16, HR: 78, BP: 106/68, Ht: 60.5, Wt: 159.2, BMI:30.58. * Examination: H ip / Thigh: Hip joint: l eft. Palpation: m ild tenderness on trochanteric bursa but more tender superior to this region just beneath the iliac crest. Range of motion: n ormal flexion, extension & rotations but painful external rotation and click noted. L-S spines: n o tenderness on spines or SI joints. Ipsilateral knee joint: n ormal ROM, no tenderness. Gait: n ormal. G eneral Examination: General P leasant and Cooperative, NAD on RA,. Breasts : p ea sized lump left chest wall just superior to the breast approx 12-1 oclock. Heart: R egular Rate and Rhythm, no murmur, rubs or gallops. Lungs: L CTAB, No wheezes, crackles or rhonchi, Good air movement,. Assessment: * Assessment: 1. L eft hip pain - M25.552 (Primary) 2 . C licking of left hip - R29.4? 3. M ass of chest wall, left - R22.2 Plan: * Treatment: * Clinical Notes: labral injury? rec plain films as noted and consider PT vs additional imaging? 2.?Clicking of left hip?Imaging: X ray : Hip, Left* Trina Bonner 03/31/2025 11:35:42 AM EDT > frog-leg views as well please * 3.?Mass of chest wall, left?Imaging: Ultrasound : Breast, Left * ?Imaging: Ultrasound : Soft Tissue* Clinical Notes: + FH breast cancer. Normal mamm in 01/2025, [facility]. Rec US this region. ? Referral To: ?Reason:US left breast and soft tissue left chest * Follow Up: p rn * * Sign off status: Completed true * Provider: AUREA Robertson Date: 0 03/31/2025 Generated for Alison williamson/Keely/Alanna on: 0 04/06/2025 02:18 PM EDT History and Physical Notes * Examination Category Sub-Category Detail Notes Category Not es General Examination Heart: Regular Rate and Rhythm, no murmur, rubs or gallops Lungs: LCTAB, No wheezes, c rackles or rhonchi, Good air movement, Breasts : pea sized lump left chest wall just superior to the breast approx 12-1 oclock General Pleasant and Coopera tive, NAD on RA, Hip / Thigh Gait: normal Range of motion: normal flexion, exte nsion & rotations but painful external rotation and click noted Ipsilateral knee joint: normal ROM, no t enderness L-S spines: no tenderness on spi durga or SI joints Hip joint: left Palpation: mild tenderness on t rochanteric bursa but more tender superior to this region just beneath the iliac crest Consultation Request Notes Referral Date Referring Provider Referred Provider Not es 03/31/2025 Trina Bonner , left [address] [facility] and soft tissue left chest
--- OUTSIDE RECORDS SUMMARY | 2025-04-02 11:00 | XMS_ITS ---
Author Organization [facility] Address [address] [address] [facility] [address] [place], [place] [address] Care Team Providers Care Multimedia Teacher Name Role Phone Nimco Kimbrough Primary Care Provider NIMCO Kimbrough APRN Unavailable Unavailable Bryson Stevenson Unavailable [phone] REASON FOR VISIT hip pain Encounters Encounter Location Date Provider Diagnosis [facility] [address] [place], [place] [address] 04/02/2025 Bryson Stevenson Plan Of Treatment Next Appt Details Provider Name:Trina Blue ce, 05/24/2025 02:00:00 PM, [address], [address], [place], [place], [address], Progress Notes * Alyssa POMPAOB: 4 (30 yo F)Acc No.[id number]:04/02/2025 Progress Notes Patient: Nia VICENTE Provider: Ankita Stevenson MD :1995 A ge:30 Y S ex:Female Date:04/02/2025 Address[address], [id number] Pcp:Nimco Kimbrough Subjective: * Chief Complaints: * 1 . Hip pain. * Medical History: Objective: * Vitals: Assessment: Plan: * Treatment: * * Electronic signature of Marlo Stevenson MD FAAP on 04/06/2025 at 02:19 PM EDT Sign off status: Pending * Provider: Ankita Stevenson MD Date: 0 04/02/2025 Generated for Alison williamson/Keely/Alanna on: 0 04/06/2025 02:19 PM EDT
--- NOTE | 2025-04-06 14:18 | US_ITS ---
PROCEDURE INFORMATION: Exam: US Left Breast, Complete Exam date and time: 04/06/2025 2:11 PM Age: 30 years old Clinical indication: Left; PT has bb size area just ant to outside breast tissue uoq-- maternal HX of breast CA in 30s TECHNIQUE: Imaging protocol: Complete ultrasound of all four quadrants of the left breast and the retroareolar regions, including ultrasound of the axilla when performed. COMPARISON: No relevant prior studies available. FINDINGS: ULTRASOUND: Breast ultrasound findings: Sonographic images of the left upper chest outside the area of breast tissue where the patient reports a palpable abnormality does not demonstrate any solid or cystic masses. Cursors were placed over normal subcutaneous fat. Incidental 0.2 cm cyst in the left 2 o'clock axis 3 cm from the nipple. No other focal findings in the remainder of the left breast. No axillary adenopathy IMPRESSION: Palpable abnormality outside of the left breast and the upper chest corresponds sonographically to normal fibroadipose tissue. Further evaluation of a palpable abnormality should be based on clinical grounds regardless of radiographic findings or lack thereof. ASSESSMENT: BI-RADS Category 2: Benign.
--- OUTSIDE RECORDS SUMMARY | 2025-04-06 14:18 | XMS_ITS | Encounter Summary ---
Author Organization [facility] Address [address] [place] [address] Care Team Providers Care Dog Breeder Name Role Phone Nimco Siddiqui APRN Primary Care Provider [phone] Encounter Details Date Type Department Care Team (Late st Contact Info) Description 01/29/2025 Results Follow-Up [facility] [address] [place] [address] Hali Buckley Social History Tobacco Use Types Packs/Day Years Used Date Smoking Tobacco: Never Smokeless Tobacco: Never Alcohol Use Standard Drinks/Week Comments Not Currently 0 (1 standard drink = 0.6 oz pur e alcohol) [facility] Utilities Answer Date Recorded In the past 12 months has [employer] electric, gas, oil, or water company threatened [...] and heating? Not hard at all 11/11/2023 [facility] of Occupat ional Health - Occupational Stress [...] things needed for daily living? No 11/11/2023 [place] Depression Scale Answer Date Recorded Retired [place] Depression Score 3 11/13/2023 Retired EPD Scale: [...] GED or equivalent No 11/11/2023 Preferred Language Malawian 11/11/2023 PHQ-2 Answer Date Recorded Retired PHQ-9: [...] 9:26 AM EDT Sent the patient a Protean Paymentt message re: unable to obtain genetic testing [...] PM EDT I sent the patient a BuzzTablehart message asking for a call to discuss assessment results. documented in this encounter Plan of Treatment Not on file documented as of this encounter Visit Diagnoses Not on filedocumented in this encounter Care Teams Dog Breeder Relationship Specialty Start Date End Date Nimco Siddiqui APRN [facility] [place] [address] PCP - General Nurse Practitioner 01/30/25 documented as of this encounter
--- OUTSIDE RECORDS SUMMARY | 2025-04-06 14:18 | XMS_ITS | Encounter Summary ---
Author Organization [facility] Address [address] [place] [address] Care Team Providers Care Highway Engineer Name Role Phone Nimco Siddiqui APRN Primary Care Provider [phone] Encounter Details Date Type Department Care Team (Late st Contact Info) Description 03/06/2025 Documentation [facility] [address] [place] [id number] Hali Buckley Social History Tobacco Use Types Packs/Day Years Used Date Smoking Tobacco: Never Smokeless Tobacco: Never Alcohol Use Standard Drinks/Week Comments Not Currently 0 (1 standard drink = 0.6 oz pur e alcohol) [facility] Utilities Answer Date Recorded In the past 12 months has [employer] electric, gas, oil, or water company threatened [...] and heating? Not hard at all 11/11/2023 [facility] of Occupat ional Health - Occupational Stress [...] things needed for daily living? No 11/11/2023 [place] Depression Scale Answer Date Recorded Retired [place] Depression Score 3 11/13/2023 Retired EPD Scale: [...] GED or equivalent No 11/11/2023 Preferred Language Nigerian 11/11/2023 PHQ-2 Answer Date Recorded Retired PHQ-9: [...] on filedocumented in this encounter Care Teams Highway Engineer Relationship Specialty Start Date End Date Nimco Siddiqui APRN [address] [place] [address] PCP - General Nurse Practitioner 01/30/25 documented as of this encounter
--- OUTSIDE RECORDS SUMMARY | 2025-04-06 14:18 | XMS_ITS | Clinical Summary ---
Author Organization [facility] Address [address] [place] [address] Care Team Providers Care Powerhouse Oiler Name Role Phone Nimco Siddiqui SAM Primary Care Provider [phone] Allergies No known active allergies Medications Vit-Fe [...] vomiting 07/23/2023 Delivery by section of full-term infant 07/09/2020 Gestational diabetes mellitu s (GDM) in childbirth, insulin controlled 07/08/2020 Resolved Problems Problem Noted Date Diagnosed Date Resolved Date Encounter for induction of labor 07/08/2020 07/09/2020 Encounter for elective induction of labor 07/07/2020 07/08/2020 Encounters Date Type Department Care Team Description 03/06/2025 Documentation [facility] [address] [place] [address] Hali Buckley 01/30/2025 3:15 PM EDT - 01/30/2025 11:59 PM EDT Hospital Encounter [facility] [address] [place] [address] Nimco Siddiqui APRN Family history of breast cancer in mother Discharge Disposition: Home or Self Care 01/30/2025 Travel 01/29/2025 Results Follow-Up [facility] [address] [place] [address] Hali Buckley from Last 3 Months Immunizations [...] drink = 0.6 oz pur e alcohol) [facility] Utilities Answer Date Recorded In the [...] and heating? Not hard at all 11/11/2023 [facility] [place] of Occupat ional Health - Occupational Stress [...] things needed for daily living? No 11/11/2023 [place] Depression Scale Answer Date Recorded Retired [place] Depression Score 3 11/13/2023 Retired EPD Scale: [...] GED or equivalent No 11/11/2023 Preferred Language Eritrean 11/11/2023 PHQ-2 Answer Date Recorded Retired PHQ-9: [...] ANNUAL PHYSICAL 05/07/2020 COVID-19 Vaccine (3 - 2024-2 6 season) 2025 04/15/2021, 03/24/2021 INFLUENZA VACCINE 04/25/2025 03/26/2020, 04/20/2016 [...] of concern indicated by the patient. A egegik marker is placed over a visible skin [...] suggest development of malignancy. us Nimco Artur ASSEMBLY LEAD PERSON IMG MAMMOGRAPHY ORDERABLES Lisa marion Result * (ABNORMAL) [facility] GENETIC RISK ASSESSMENT QUESTIONNAIRE - , (01/29/2025 9:32 AM EDT) Phyllis 18.4 [facility] NCCN NCCN met(A) [facility] Comment:High Risk Cancer Ris k Assessment 01/29/2025 9:32 AM EDT Nimcojr Siddiqui ASSEMBLY LEAD PERSON GENETIC TESTING Final Result [facility]
[address] [place] [address], [place] [phone] * Hepatitis C Antibody (05/26/2023 11:51 AM EDT) Pathologist [facility] Hepatitis C Ab Non-Reacti ve Non-Reacti ve 05/26/2023 3:40 PM EDT [facility] Blood Venipuncture / Unknown 05/26/2023 11:51 AM EDT 05/26/2023 11:51 AM EDT Narrative [facility] - 05/26/2023 3:40 PM EDT Results may be falsely decreased if patient taking Biotin. Tania Laboy MD LAB BLOOD ORDERABLES Final Re sult [facility]
[address] [place] [address], [place] [phone] from Last 3 Months or Most Recently Relevant to Health Maintenance Insurance [facility] PPO Advance Directives * CPR (Attempt [...] pulse or is breathing): Full Care Teams Powerhouse Oiler Relationship Specialty Start Date End Date Nimco Siddiqui APRN [address] [place] [address] PCP - General Nurse Practitioner 01/30/25
--- OUTSIDE RECORDS SUMMARY | 2025-04-06 14:19 | XMS_ITS | Patient Health Record ---
Author Organization [facility] Address [address] [place] [address] Care Team Providers Care Hypnotherapist Name Role Phone Tania Laboy Unavailable [phone] Allergies No Known Allergies Reason For Referral [...] Status Risk Notes Problem RhD negative (finding) (202531813) Blood type, Rh negative (Z67.91) Active confirmed Problem Maternal obesity complicating , childbirth and the puerperium, antepartum (237840719016) Obesity in (O99.210) Active confirmed Problem Anxiety disorder (741955174) Anxiety disorder, unspecified (F41.9) Active confirmed Problem Supervision of high risk (741704642) Supervision of other high risk pregnancies, third trimester (O09.893) Active confirmed Problem Insulin controlled gestational diabetes mellitus (GDM) in third trimester (O24.414) Active confirmed Problem History of section (139379554) History of delivery (Z98.891) Active confirmed Problem Desires (vaginal after ) trial (O34.219) Active confirmed Plan Of Treatment No Information Insurance Providers Payer Name Payer Address Payer Phone Subscriber Number Group Number Insured Name Patient Relationship to Insured Coverage Start Date Coverage End Date [employer] PPO [address] [place] [address] [id number] Nia Berman Self - patient is the insured 2 Medications Administered Medication Instructions Date of Administration Dosage Notes Rho D Immune Globulin 09/06/2023 300 ug Medical (General) History Medical History History ICD Code anxiety PCOS Surgical History Surgery Date(Month/Year) none noted Hospitalization History Reason Date(Month/Year) 11/12/2023 L&D
--- OUTSIDE RECORDS SUMMARY | 2025-04-06 14:20 | XMS_ITS | Patient Health Record ---
Author Organization [facility] Address [address] [place] [address] Care Team Providers Care Firewall Administrator Name Role Phone Nimco Kimbrough Primary Care Provider NIMCO Kimbrough APRN Unavailable Unavailable Bryson Stevenson Unavailable [phone] Trina Bonner Unavailable [phone] Trina Rowland Unavailable [phone] Migration, Provider Unavailable Unavailable Allergies No Known Allergies Results Component Value Reference Range Notes HEMOGLOBIN A1c (496) Reviewed date:11/17/2024 04:15:22 PM Interpretation: Performing Lab:[facility] [address] [place] Kehinde Reynoso Notes/Report: NON-FASTING; NON-FASTING; NON-FASTING; NON-FASTING; [...] A1c for diagnosis of diabetes for children. CBC (INCLUDES DIFF/PLT) (639 9) Reviewed date:11/17/2024 04:15:21 PM Interpretation: Performing Lab:[facility] [address] [facility], [facility] HospitalGjvvZU[address] Kehinde Reynoso Notes/Report: NON-FASTING; NON-FASTING; NON-FASTING; NON-FASTING; [...] MPV 9.5 7.5-12.5 fL ABSOLUTE NEUTROPHILS 2959 3886-8746 cells/uL ABSOLUTE LYMPHOCYTES 2550 850-3900 cells/uL ABSOLUTE MONOCYTES 390 200-950 cells/uL ABSOLUTE EOSINOPHILS 159 15-500 cells/uL ABSOLUTE BASOPHILS 43 0-200 cells/uL NEUTROPHILS 48.5 LYMPHOCYTES 41.8 MONOCYTES 6.4 EOSINOPHILS 2.6 BASOPHILS 0.7 [facility] PANE (19521) Reviewed date:11/17/2024 04:15:21 PM Interpretation: Performing Lab:[facility], [facility] [address] [facility], [facility] [facility] HospitalAhbvYP[address] Kehinde Reynoso Notes/Report: NON-FASTING; NON-FASTING; NON-FASTING; NON-FASTING; [...] 20 10-30 U/L ALT 26 6-29 U/L LIPID PANEL, STANDARD (7600) Reviewed date:11/17/2024 04:15:21 PM Interpretation: Performing Lab:[facility] [id number] [facility] [address], [place]ij[place] Kehinde Reynoso Notes/Report: NON-FASTING; NON-FASTING; NON-FASTING; NON-FASTING; NON-FAST FASTING:YES FASTING: YES CHOLESTEROL, TOTAL 210 <200 mg/dL HDL CHOLESTEROL 43 > OR = 50 mg/dL TRIGLYCERIDES 158 <150 mg/dL LDL-CHOLESTEROL 138 <70 mg/dL for patients with CHD or diabetic patients with > or = 2 CHD risk factors. LDL-C is now calculated using the Mack-Campbell calculation, which is a validated novel method providing better accuracy than the Friedewald equation in the estimation of LDL-C. Mack SS et al. STU. 2013;310(19): 3792-4229 (http://education.Automated Insights.Stamped/faq/OLM503) Reference range: <100 Desirable range <100 mg/dL for primary prevention; CHOL/HDLC RATIO 4.9 <5.0 (calc) NON HDL CHOLESTEROL 167 <130 mg/dL (calc) For patients with diabetes plus 1 major ASCVD risk factor, treating to a non-HDL-C goal of <100 mg/dL (LDL-C of <70 mg/dL) is considered a therapeutic option. X ray : Foot, Right Reviewed date:10/18/2024 01:17:44 PM Interpretation: Performing Lab: Notes/Report: TSH (899) Reviewed date:11/17/2024 04:15:22 PM Interpretation: Performing Lab:[facility] [id number] Bl[facility], [place] [facility] HospitalUvxjIU[address] Kehinde Reynoso Notes/Report: NON-FASTING; NON-FASTING; NON-FASTING; NON-FASTING; NON-FAST FASTING:YES FASTING: YES TSH 2.50 Reference Range > or = 20 Years 0.40-4.50 Ranges First trimester 0.26-2.66 Second trimester 0.55-2.73 Third trimester 0.43-2.91 Mammogram : Bilateral Reviewed date:03/31/2025 12:29:41 PM Interpretation: Performing Lab: Notes/Report: Reason For Referral Reason [facility] Diagnosis 1 Family history of br east cancer in mother (Z80.3) Referral Organization [facility] KEI ENGLE Referring Provider First Name Nimco Referring Provider Last Name Kaylan Referring Provider [facility] Peewee ctice Referred Organization [facility] Referrals Referred Address [address] [place],[address], General Notes Selena Bauman 2024 12:00:59 PM >sent to [facility] Referral Priority Routine Reason US left breast and s oft tissue left chest Diagnosis 1 Mass of chest wall, left (R22.2) Referral Organization [facility] KEI ENGLE Referring Provider First Name Trina Referring Provider Last Name Kailey Referring Provider [facility] Family Vides ctice Referred Organization [facility] Referred Address [address] [facility] [address] [place], [place],[address],[place] Referred Provider Specialty Diagnostic R adiology General Notes Selena Bauman 2024 11:16:39 AM >all orders sent to [facility] to schedule Referral Priority Routine Reason [facility] Orthopedics - Xr ay shows some abnormalities in the pelvic bone Referral Organization [facility] EVY ENGLE Referring Provider First Name Nimco Referring Provider Last Name Kaylan Referring Provider [facility] Peewee ctice Referred Organization [facility] Referred Address [address] [facility] [address] [place], [place],[address],[place] Referred Provider Specialty Orthopedic S urgery General Notes Selena Bauman 2024 12:07:31 PM >Mitul Nickie 04/03/2025 12:12:55 PM >sent to Ortho, Selena Bauman 04/03/2025 03:24:51 PM >scheduled and spoke with patient Referral Priority Routine Referral Appointment Date 04/05/2025 Medications Medication SIG (Take, Route, Fr equency, [...] Status Risk Notes Problem Carpal tunnel syndrome (23574763) Right carpal tunnel syndrome (G56.01) Active confirmed Problem Obese class II (291479335392971 ) BMI 36.0-36.9,adult (Z68.36) Active confirmed Problem Plantar fasciitis of right foot (207593382372640 01) Plantar fasciitis of right foot (M72.2) Active confirmed Problem History of gestational diabetes mellitus (713730852) History of gestational diabetes (Z86.32) Active confirmed Vital Signs Heart Rate 78 /min 03/31/2025 Temperature 97.8 degrees Fahrenheit 03/31/2025 Blood pressure diastolic 68 mm Hg 03/31/2025 Height 60.5 in 03/31/2025 Blood pressure systolic 106 mm Hg 03/31/2025 Weight 159.2 lbs 03/31/2025 BMI 30.58 kg/m2 03/31/2025 Encounters Encounter Location Date Provider Diagnosis [facility] [address] [address] 10/28/2024 Provider Migration Plantar fasciitis of right foot M72.2 and Dermatitis L30.9 [facility] [address] [place] [address] 10/17/2024 Nimcojr Kimbrough Right foot pain M79.671 ; Plantar fasciitis of right foot M72.2 and Dermatitis L30.9 [facility] [address] [place] [address] 11/16/2024 Nimco Kimbrough Routine medical exam Z00.00 ; BMI 36.0-36.9,adult Z68.36 ; Dermatitis L30.9 ; Plantar fasciitis of right foot M72.2 ; History of gestational diabetes Z86.32 ; Fatigue, unspecified type R53.83 ; Encounter for immunization Z23 ; Family history of breast cancer in mother Z80.3 and Right carpal tunnel syndrome G56.01 [facility] [address] [place] [address] 12/13/2024 Trina Rowland Acute pain of right knee M25.561 [facility] [address] [place] [address] 03/31/2025 Trina Bonner Left hip pain M25.55 2 ; Clicking of left hip R29.4 and Mass of chest wall, left R22.2 [facility] [address] [place] [address] 10/17/2024 Nimco Kimbrough [facility] [address] [facility] [address] [place] [address] 11/23/2024 Nimco Kimbrough Assessments Encounter Date Diagnosis [...] FH breast cancer. Normal mamm in 01/2025, Gnosticism. Rec US this region. 10/28/2024 Dermatitis (ICD-10 - L30.9) 10/17/2024 Dermatitis [...] Left 03/31/2025 Ultrasound : Soft Tissue 03/31/2025 Next Appt Details Provider Name:Trina Blue ce, 05/24/2025 02:00:00 PM, [address] [place] [facility] [address], [place], [address], Insurance Providers Payer Name Payer Address Payer Phone Subscriber Number Group Number Insured Name Patient Relationship to Insured Coverage Start Date Coverage End Date [facility] [employer] [address] [place] [address] [id number] Nia Berman Self - patient is the insured Medical (General) History Medical History History ICD Code PCOS Surgical History Surgery Date(Month/Year) x 2 2023 Hospitalization History Reason Date(Month/Year) Childbirth 2023
== END 2025-04-06 23:59 | disposition home or self-care (01) ==
LOC: RAD 14:15
PROVIDERS: PCP Nurse Practitioner Family; Visit Provider Nurse Practitioner Family
DX: N60.02 Solitary cyst of left breast (principal)
CPT/HCPCS: 76641